=== PATIENT | male | born 1985 | race Caucasian/White ===

== ENCOUNTER → 2020-07-06 16:14 | Outpatient (CLI) | payer OTHER, SELFPAY ==
[2020-07-06 17:42] LABS: COVID19 -Nasal RAPID Negative (Negative)
== END ==
PROVIDERS: PCP Registered Nurse Diabetes Educator; Visit Provider Specialist
DX: Z20.822 Contact with and (suspected) exposure to COVID-19 (principal)
CPT/HCPCS: 87635; C9803

== ENCOUNTER 2020-07-08 06:34 | Day surgery (SDC) | payer OTHER, SELFPAY ==
[2020-07-08] VITALS (8 sets, daily range): BP systolic 94–118; BP diastolic 54–69; PULSE 56–99; RESP 12–18; TEMP 36.5–37; O2SAT 98–99; BMI 23.0
[2020-07-08] MEDS: LACTATED RINGERS 1,000 ML 42 ML IV (07:14)
--- NOTE | 2020-07-08 07:32 | PM.PREOP ---
Pre-operative Note Interval Note History & Physical reviewed/Exam performed by Physician: Yes Changes to H&P: No H&P completed within 30 days and has changed as indicated here:: Heber is a 34-year-old white male presenting today for right inguinal hernia repair by Dr. Ortega, who also desires sterility. He is reviewed and considered available long-term methods of contraception in family planning and has chosen vasectomy is his preferred method. The common side effects, possible complications, perioperative limitations/restrictions, and reasonable expectations of outcomes and recovery following vasectomy were explained at length and in detail today. He had no specific further clarifying questions and indicates a desire to proceed.
--- NOTE | 2020-07-08 07:33 | PM.PREOP ---
Pre-operative Note COVID-19 COVID-19 status: Negative Result date/Date tested (Pos, Neg/Pending): 07/07/20 Interval Note History & Physical reviewed/Exam performed by Physician: Yes Changes to H&P: No H&P completed within 30 days and has changed as indicated here:: Spoke with patient about the permanence of the vasectomy, and the fact it may not be able to be reversed.
[2020-07-08] MEDS: CEFAZOLIN 2 GM/100 ML FROZ.PIGGY IV (07:45)
--- NOTE | 2020-07-08 08:09 | SUR.OPER ---
Supine on padded OR bed, head on pillow, arms secured on padded arm boards at <90 degrees abduction, legs uncrossed, safety belt at thigh, tape over blanket over lower legs.
[2020-07-08] MEDS: BUPIVACAINE 0.5% (PF) VIAL 30 ML INJ (08:20)
--- NOTE | 2020-07-08 08:25 | PM.OP.1 ---
Operative Date/Time/Diagnoses Date of procedure: 07/08/20 Time of procedure: 08:25 Pre-op diagnosis: Desires sterility Post-op diagnosis: same Procedure & Clinicians Procedure: 1. Bilateral mastectomy Same procedure as scheduled: Yes Indications: 1. Desires sterility Surgeon: Pasha Wade Click Yes if Unassisted: Yes Anesthesia Type: General and Local (0.5% plain Marcaine) Operative Notes Findings: Normal vas structure and tissue planes. Closure Type: primary Specimen(s): none sent Estimated Blood Loss (mL): 0 Blood products transfused: none Tourniquet time (min): 0 Procedure in detail: The patient was positioned supine administered general anesthesia. The lower abdomen, groin and genitalia were prepped and draped in sterile fashion. Dr. Ortega created a right inguinal incision and exposure of the cord in usual fashion. Local anesthetic was used to infiltrate the midline scrotal raphae and subcutaneous tissue. The ringed vas clamp was then utilized to identify and isolate the left vas. A 2nd ring clamp was then applied as well. The overlying vast sheath was then divided using cautery and blunt technique. The isolated vas loop was then brought up through the incision. Medium hemoclips were then applied in opposing directions on the distal side and single on the proximal side. Intervening segment of approximately 1 cm was then excised with the cautery pen. The testicle was then repositioned left hemiscrotum. Skin and subcutaneous tissues then reapproximated with interrupted 4-0 chromic. A segment of the vas was isolated via the right inguinal canal incision. Again, the vas was isolated with the ringed vas clamps. The vas sheath was divided in the same manner and a loop of isolated as was then exposed. Again, medium clips were applied an opposing direction x2 on the distal side and a single clip on the proximal side. An intervening segment of approximately 1 centimetre was excised with the cautery pen and discarded. Dr. Ortega then completed his planned operative procedure of the day, the details of which can be found in his operative report. Complications: none Post-operative Condition: stable Disposition: PACU Plan for aftercare: 1. Discharge home. 2. Submit post vasectomy semen analysis in approximately 12 weeks per routine.
--- NOTE | 2020-07-08 09:30 | PM.OP.1 ---
Operative Date/Time/Diagnoses Date of procedure: 07/08/20 Time of procedure: 09:30 Pre-op diagnosis: Right inguinal hernia reducible Post-op diagnosis: same Procedure & Clinicians Procedure: Right inguinal hernia repair with plug and patch technique. Separate vasectomy done by Dr. Wade which will be dictated separately Same procedure as scheduled: Yes Indications: Symptomatic right inguinal hernia Surgeon: Rosales Ortega Click Yes if Unassisted: Yes Anesthesia Type: General Operative Notes Findings: Large indirect sac with a markedly weakened floor Closure Type: primary Specimen(s): none sent (For the hernia repair.) Prosthetic devices, grafts, tissues, transplants, or devices: Small plug and patch Estimated Blood Loss (mL): 10 Blood products transfused: none Procedure in detail: The patient was placed supine on the operating room table and underwent general LMA anesthesia. He was prepped and draped in the usual fashion. A transverse incision was made overlying the right internal ring and carried down to the level of the external oblique. The external oblique was opened parallel with its fibers through the external ring. The cord structures were elevated. The cremaster was opened proximally and search made for an indirect sac. One was found. Was from surrounding structures. There was a piece of omentum adherent to the distal and causing a lot of scarring between the sac and the cord. I ultimately this out dissected the sac proximally level deep epigastric vessels. The omentum was reduced and a pursestring of 2-0 silk was placed followed by tie. Local anesthetic was infiltrated beneath the tie and distal portion was removed and the stump allowed to retract. A small plug was placed in the defect created and tacked into place with interrupted Ethibond. Cremaster was closed over it with interrupted 3-0 Vicryl.. The floor was examined and was found to be weakened.. A patch was placed across the floor and tacked at the pubic tubercle, the posterior lamella of the anterior rectus sheath, the ilioinguinal ligament, and superior lateral to the cord. The opening was modified as necessary to prevent tight constriction of the cord. Sutures of 0 Ethibond were used to secure the mesh. The external oblique was closed with a running 3 0 Vicryl. The subcu was closed with interrupted 3 0 Vicryl. The skin was closed with a running 4 0 Vicryl subcuticular stitch and Steri-Strips. Dressing was applied, the patient was awakened, and the patient was taken to the recovery area in good condition. Complications: none Post-operative Condition: stable Disposition: PACU
[2020-07-08] MEDS: MEPERIDINE 50 MG/ML INJ 12.5 MG IV (09:40)
[2020-07-08] MEDS: OXYCODONE/ACETAMINOPHEN 5/325 TABLET 1 TAB PO (10:02)
--- NOTE | 2020-07-08 11:02 | SUR.PHASEII ---
1022- Pt up and ambulating gait steady to br voiding without problems and getting dressed now, iv dcd site clear, all dc instructions given and pt verbalizes understanding, father at curbside and pt ready to go soon. Taking po fluids without problems and will go pickle solution maker rx at pharmacy
== END 2020-07-08 10:35 | disposition home or self-care (01) ==
PROVIDERS: PCP Registered Nurse Diabetes Educator; Referring Provider Specialist; Visit Provider Specialist
PROC: (CPT 55250; principal; 2020-07-08 07:45)
PROC: (CPT 49505; 2020-07-08 07:45)
DX: K40.90 Unilateral inguinal hernia, without obstruction or gangrene, not specified as recurrent (principal); Z30.2 Encounter for sterilization; F17.210 Nicotine dependence, cigarettes, uncomplicated
CPT/HCPCS: 49505; 55250; C1781; J0690; J1100; J1885; J2175; J2250; J2405; J2704; J3010

== ENCOUNTER → 2020-10-07 13:13 | Outpatient (CLI) | payer OTHER, SELFPAY ==
[2020-10-07 14:57] LABS: COVID19 -Nasal RAPID POSITIVE (Negative)
== END ==
PROVIDERS: PCP Registered Nurse Diabetes Educator; Referring Provider Student in an Organized Health Care Education/Training Program; Visit Provider Student in an Organized Health Care Education/Training Program
DX: U07.1 COVID-19 (principal)
CPT/HCPCS: 87635

== ENCOUNTER 2022-11-07 10:34 | Emergency (ER) | payer OTHER, SELFPAY ==
[2022-11-07 10:46] VITALS: BP 123/58; PULSE 66; RESP 18; TEMP 36.7; O2SAT 99; BMI 23.4
--- NOTE | 2022-11-07 13:12 | DI.CT.S_ITS ---
PROCEDURE: CT ABDOMEN PELVIS W CON INDICATIONS: Incision keeps opening up 3 yearsb after surgery TECHNIQUE: After the administration of intravenous contrast, axial sections acquired from the lung bases to the pubic symphysis. Coronal and sagittal reformats were performed. For radiation dose reduction, the following was used: automated exposure control, adjustment of mA and/or kV according to patient size. COMPARISON: None. FINDINGS: Image quality: Excellent. Lung bases: Unremarkable. Heart: No significant findings. ABDOMEN: Liver: There is a 15 mm low-density focus within the right hepatic lobe inferiorly which demonstrates peripheral nodular enhancement, consistent with a hemangioma. There is an avidly enhancing 13 mm focus within the lateral segment left hepatic lobe inferiorly which demonstrates peripheral nodular enhancement, consistent with hemangioma. Gallbladder: Unremarkable. Biliary ducts: Unremarkable. Pancreas: Unremarkable. Spleen: Unremarkable. Adrenal Glands: Unremarkable. Kidneys and Ureters: Unremarkable. Stomach and Bowel: Stomach, small bowel loops, and colon are unremarkable. Normal appendix. Peritoneum: No abnormal intraperitoneal fluid. No free air. Ventral Wall: No hernias. Abdominal Nodes: No retroperitoneal or mesenteric adenopathy by size criteria. Vessels: Aorta and inferior vena cava are normal in size. PELVIS: Pelvic Organs: Unremarkable. Bladder: Unremarkable. Pelvic Nodes: No enlarged lymph nodes. Miscellaneous: No hernias are seen. Right inguinal surgical clips are present. Induration of the overlying skin is present. Bones: Unremarkable. IMPRESSION: 1. Postsurgical sequelae within the right inguinal region with overlying skin induration, possibly indicating infection or scarring. No focal fluid collection to indicate abscess. 2. Normal appendix. 3. Hepatic hemangiomata. Dictated by: Virgil Lainez M.D. on 11/07/2022 at 13:48 Approved by: Virgil Lainez M.D. on 11/07/2022 at 13:53
--- NOTE | 2022-11-07 13:27 | ED.SKABFB ---
HPI - Skin/Abscess/Foreign Bdy <Harmony Echevarria PA-C - Last Filed: 11/07/22 15:52> General Chief complaint: Skin/Abscess/Foreign Body Stated complaint: inscion is opening up Time Seen by Provider: 11/07/22 12:33 Source: patient Mode of arrival: Ambulatory Limitations: no limitations History of Present Illness HPI narrative: 36-year-old male with no reported past medical history presents to the ED for wound dehiscence from a prior inguinal hernia surgery. Patient states that the surgery was 3 years ago, that the incision has been flaring up on an on, sometimes oozes a pus-like substance. Patient states that the wound seems to get aggravated by his pants rubbing against the skin. Patient states that a week ago, he saw the incision actually open up and he saw something mackenzie to internal organs. Patient denies fever, chills, nausea, vomiting, abdominal pain, pain at the site of the incision. Patient states that his surgeon has since retired and he has not sought any medical care for this issue over the last 3 years. Related Data Previous Rx's Medication Instructions Recorded sulfamethoxazole 800 1 tab PO BID 7 days #14 tabs 11/07/22 mg-trimethoprim 160 mg tablet (Bactrim DS) Allergies Allergy/AdvReac Type Severity Reaction Status Date / Time No Known Drug Allergies Allergy Verified 11/07/22 10:48 Review of Systems <Harmony Echevarria PA-C - Last Filed: 11/07/22 15:52> Review of Systems ROS Unobtainable: All systems reviewed & are unremarkable except as noted in HPI and below Constitutional Constitutional: Denies chills, Denies fatigue, Denies fever(s), Denies frequent falls, Denies lethargy and Denies weakness Eyes Eyes: Denies change in vision, Denies eye discharge, Denies irritation and Denies loss of vision ENT Ears, Nose, Mouth, and Throat: Denies change in voice, Denies dizziness, Denies neck pain, Denies sore throat and Denies throat swelling Cardiovascular Cardiovascular: Denies chest pain, Denies irregular heart rhythm, Denies lightheadedness, Denies palpitations, Denies dyspnea, Denies dyspnea on exertion and Denies orthopnea Respiratory Respiratory: Denies cough, Denies dyspnea, Denies dyspnea on exertion and Denies wheezing Gastrointestinal Gastrointestinal: Denies abdominal pain, Denies change in bowel habits, Denies diarrhea, Denies nausea and Denies vomiting Genitourinary Genitourinary: Denies hematuria, Denies flank pain, Denies urinary incontinence and Denies urinary urgency Musculoskeletal Musculoskeletal: Denies back pain, Denies muscle weakness, Denies neck pain, Denies numbness and Denies tingling Integumentary/Breasts Skin/Breast: Denies pruritus, Denies erythema, Denies rash and Reports wounds Neurologic Neurologic: Denies behavioral changes, Denies confusion, Denies dizziness, Denies frequent falls, Denies loss of vision, Denies numbness, Denies tingling and Denies weakness Psychiatric Psychiatric: Denies anxiety, Denies behavioral changes, Denies confusion, Denies depression, Denies homicidal ideation and Denies suicidal ideation Endocrine Endocrine: Denies fatigue, Denies flushing and Denies palpitations Hematologic/Lymphatic Hematologic/Lymphatic: Denies easy bruising Allergic/Immunologic Allergic/Immunologic: Denies urticaria, Denies throat swelling and Denies wheezing Patient History <Harmony Echevarria PA-C - Last Filed: 11/07/22 15:52> Medical History (Updated 11/07/22 @ 15:03 by Harmony Echevarria PA-C) Right inguinal hernia Family History Grandmother Diabetes mellitus Cancer Hypertension Social History marital status: unknown household members: none occupational status: employed Smoking Status: Current every day smoker quit status: not considering quitting second hand exposure: Yes alcohol intake: current substance use type: marijuana Smoking Status: Current every day smoker tobacco type: vaping alcohol intake frequency: a few times a week Substance Use Type: marijuana Exam <Harmony Echevarria PA-C - Last Filed: 11/07/22 15:52> Narrative Exam Narrative: Const General:?cooperative, healthy appearing and comfortable [facility] Head:?normal to inspection Ears:?hearing grossly normal bilaterally Nose:?external nose normal Face and sinus:?normal facial exam and sinuses nontender Mouth:?oral mucosae normal Throat:?posterior oropharynx normal Eyes General:?appearance normal, both eyes and all related structures Neck Neck:?normal visual inspection and no lymphadenopathy noted Resp Effort & Inspection:?normal respiratory effort Auscultation:?clear to auscultation bilaterally Cardio Rate:?regular rate Rhythm:?regular rhythm Integumentary Linear surgical incision is visualized in the right inguinal area. It appears closed with some crusted blood around the incision. No purulence or other discharge noted on exam. There is no erythema. It is not tender to palpation. Neuro General:?patient alert, patient awake and patient oriented x3 Initial Vital Signs Initial Vital Signs: Vital Signs Temperature 98.0 F 11/07/22 10:46 Pulse Rate 66 11/07/22 10:46 Respiratory Rate 18 11/07/22 10:46 Blood Pressure 123/58 L 11/07/22 10:46 Pulse Oximetry 99 11/07/22 10:46 Oxygen Delivery Method Room Air 11/07/22 10:46 <Hanna Roberts DO - Last Filed: 11/08/22 07:43> Initial Vital Signs Initial Vital Signs: Vital Signs Temperature 98.0 F 11/07/22 10:46 Pulse Rate 66 11/07/22 10:46 Respiratory Rate 18 11/07/22 10:46 Blood Pressure 123/58 L 11/07/22 10:46 Pulse Oximetry 99 11/07/22 10:46 Oxygen Delivery Method Room Air 11/07/22 10:46 Course <Harmony Echevarria PA-C - Last Filed: 11/07/22 15:52> Orders Ordered: ED Orders 11/07/22 13:12 CT abdomen pelvis w con Stat 11/07/22 13:25 CBC Auto Diff [Complete Blood Count AUTO DIFF] Stat CMP [Comprehensive Metabolic Panel] Stat Vital Signs Vital signs: Vital Signs - 8 hr 11/07/22 10:46 11/07/22 13:52 11/07/22 15:09 Temperature 98.0 F 98.4 F Pulse Rate 66 59 L 64 Respiratory Rate 18 14 18 Blood Pressure 123/58 L 107/60 128/78 Pulse Oximetry 99 100 99 Oxygen Delivery Method Room Air Room Air Room Air <Hanna Roberts DO - Last Filed: 11/08/22 07:43> Orders Ordered: ED Orders 11/07/22 13:12 CT abdomen pelvis w con Stat 11/07/22 13:25 CBC Auto Diff [Complete Blood Count AUTO DIFF] Stat CMP [Comprehensive Metabolic Panel] Stat Vital Signs Vital signs: Vital Signs - 8 hr 11/07/22 10:46 11/07/22 13:52 11/07/22 15:09 Temperature 98.0 F 98.4 F Pulse Rate 66 59 L 64 Respiratory Rate 18 14 18 Blood Pressure 123/58 L 107/60 128/78 Pulse Oximetry 99 100 99 Oxygen Delivery Method Room Air Room Air Room Air MDM - Skin/Abscess/Foreign Bdy <Harmony Echevarria PA-C - Last Filed: 11/07/22 15:52> Lab Data 11/07/22 13:25 11/07/22 13:25 Labs: Lab Results 11/07/22 11/07/22 Range/Units 13:25 13:25 WBC 8.8 (4.5-11.0) X10^3/uL RBC 5.28 (4.5-5.9) X10^6/uL Hgb 15.5 (13.5-17.5) g/dL Hct 45.1 (41-53) % MCV 85.4 (80-100) fL MCH 29.4 (26-34) PG MCHC 34.5 (30-36) % RDW 13.1 (11.6-14.8) % Plt Count 197 (150-400) X10^3/uL Neut % (Auto) 70.3 (50-75) % Lymph % (Auto) 23.2 L (25-40) % [place] % (Auto) 5.4 (3-14) % Eos % (Auto) 0.6 L (2-4) % Baso % (Auto) 0.5 (0-2) % Neut # (Auto) 6200 (5426-0755) /uL Lymph # (Auto) 2000 (8729-5617) /uL [place] # (Auto) 500 (0-900) /uL Eos # (Auto) 100 (0-450) /uL Baso # (Auto) 0 (0-100) /uL Sodium 137 (137-145) mmol/L Potassium 4.2 (3.4-5.1) mmol/L Chloride 105 (98-107) mmol/L Carbon Dioxide 24 (22-32) mmol/L BUN 11 (9-20) mg/dL Creatinine 0.73 (0.66-1.25) mg/dL Estimated GFR > 60 (>60) mL/min BUN/Creatinine Ratio 15.1 (6-22) Glucose 84 (70-100) mg/dL Calcium 8.9 (8.4-10.2) mg/dL Total Bilirubin 0.7 (0.2-1.3) mg/dL AST 29 (17-59) IU/L ALT 24 (<50) IU/L Alkaline Phosphatase 53 (38-126) U/L Total Protein 7.4 (6.3-8.2) g/dL Albumin 4.2 (3.5-5.0) g/dL Globulin 3.2 (1.7-4.1) g/dL Albumin/Globulin Ratio 1.3 (1.0-2.8) MDM Narrative Medical decision making narrative: 36-year-old male with no reported past medical history presents to the ED for wound dehiscence from a prior inguinal hernia surgery. Concern for abscess versus wound dehiscence versus seroma versus other intra-abdominal pathology versus other. Will obtain labs, CT abdomen pelvis. Will reassess. CT abdomen pelvis shows postsurgical sequelae within the right inguinal region with overlying skin induration, possibly indicating infection or scarring. No focal fluid collection to indicate abscess. No other abnormal findings on CT. Will prescribe antibiotics for possible infection. Recommend follow-up with General surgery for further evaluation of the wound. ED return precautions discussed with patient. Patient verbalized understanding. Medical records reviewed: Yes <Hanna Roberts DO - Last Filed: 11/08/22 07:43> Lab Data Labs: Lab Results 11/07/22 11/07/22 Range/Units 13:25 13:25 WBC 8.8 (4.5-11.0) X10^3/uL RBC 5.28 (4.5-5.9) X10^6/uL Hgb 15.5 (13.5-17.5) g/dL Hct 45.1 (41-53) % MCV 85.4 (80-100) fL MCH 29.4 (26-34) PG MCHC 34.5 (30-36) % RDW 13.1 (11.6-14.8) % Plt Count 197 (150-400) X10^3/uL Neut % (Auto) 70.3 (50-75) % Lymph % (Auto) 23.2 L (25-40) % [place] % (Auto) 5.4 (3-14) % Eos % (Auto) 0.6 L (2-4) % Baso % (Auto) 0.5 (0-2) % Neut # (Auto) 6200 (0733-6625) /uL Lymph # (Auto) 2000 (7732-1010) /uL [place] # (Auto) 500 (0-900) /uL Eos # (Auto) 100 (0-450) /uL Baso # (Auto) 0 (0-100) /uL Sodium 137 (137-145) mmol/L Potassium 4.2 (3.4-5.1) mmol/L Chloride 105 (98-107) mmol/L Carbon Dioxide 24 (22-32) mmol/L BUN 11 (9-20) mg/dL Creatinine 0.73 (0.66-1.25) mg/dL Estimated GFR > 60 (>60) mL/min BUN/Creatinine Ratio 15.1 (6-22) Glucose 84 (70-100) mg/dL Calcium 8.9 (8.4-10.2) mg/dL Total Bilirubin 0.7 (0.2-1.3) mg/dL AST 29 (17-59) IU/L ALT 24 (<50) IU/L Alkaline Phosphatase 53 (38-126) U/L Total Protein 7.4 (6.3-8.2) g/dL Albumin 4.2 (3.5-5.0) g/dL Globulin 3.2 (1.7-4.1) g/dL Albumin/Globulin Ratio 1.3 (1.0-2.8) Discharge Plan Departure Patient Disposition: Home Clinical Impression: Surgical wound, non healing Instructions: Wound Dehiscence Activity Restrictions/Additional Instructions: You were evaluated in the ED today for a nonhealing surgical wound. Your CT shows some induration around the incision, which could likely be due to an infection. You are being treated with antibiotics for this. Please also follow-up with [facility] by calling [phone] for further evaluation of the wound. Please return to the ED if you have worsening symptoms, fever, chills, nausea, vomiting. Prescriptions: New sulfamethoxazole-trimethoprim [Bactrim DS] 800-160 mg tablet 1 tab PO BID 7 Days Qty: 14 0RF Referrals: Asa Lopez ARNP [Primary Care Provider] - Stand Alone Forms: Patient Portal/API <Hanna Roberts DO - Last Filed: 11/08/22 07:43> Cosign ED Attending Cosdeonature Attestation: I was immediately available in the department for consultation. Documentation has been reviewed.
[2022-11-07 13:32] LABS: Add Manual Diff / Slide Review NO; Basophils Absolute Auto 0 /uL (0-100); Basophils Percent Auto 0.5 % (0-2); Eosinophils Absolute Auto 100 /uL (0-450); Eosinophils Percent Auto 0.6 % (2-4); Hematocrit 45.1 % (41-53); Hemoglobin 15.5 g/dL (13.5-17.5); Lymphocytes Absolute Auto 2000 /uL (1100-4500); Lymphocytes Percent Auto 23.2 % (25-40); Mean Corpuscular HGB Conc 34.5 % (30-36); Mean Corpuscular Hemoglobin 29.4 PG (26-34); Mean Corpuscular Volume 85.4 fL (80-100); Monocytes Absolute Auto 500 /uL (0-900); Monocytes Percent Auto 5.4 % (3-14); Neutrophils Absolute Auto 6200 /uL (1500-7000); Neutrophils Percent Auto 70.3 % (50-75); Platelet Count 197 X10^3/uL (150-400); Red Blood Cell Count 5.28 X10^6/uL (4.5-5.9); Red Cell Distribution Width 13.1 % (11.6-14.8); White Blood Cell Count 8.8 X10^3/uL (4.5-11.0)
[2022-11-07 13:46] LABS: Alanine Aminotransferase 24 IU/L (<50); Albumin 4.2 g/dL (3.5-5.0); Albumin Globulin Ratio 1.3 (1.0-2.8); Alkaline Phosphatase 53 U/L (38-126); Aspartate Aminotransferase 29 IU/L (17-59); BUN Creatinine Ratio 15.1 (6-22); Bilirubin Total 0.7 mg/dL (0.2-1.3); Blood Urea Nitrogen 11 mg/dL (9-20); Calcium 8.9 mg/dL (8.4-10.2); Carbon Dioxide 24 mmol/L (22-32); Chloride 105 mmol/L (98-107); Estimated Glomerular Filt Rate > 60 mL/min (>60); Globulin 3.2 g/dL (1.7-4.1); Glucose 84 mg/dL (70-100); HEMOLYSIS 36 (0-50); Potassium 4.2 mmol/L (3.4-5.1); Sodium 137 mmol/L (137-145); Total Protein 7.4 g/dL (6.3-8.2)
[2022-11-07 13:52] VITALS: BP 107/60; PULSE 59; RESP 14; O2SAT 100
[2022-11-07 15:09] VITALS: BP 128/78; PULSE 64; RESP 18; TEMP 36.9; O2SAT 99
== END 2022-11-07 15:11 | disposition home or self-care (01) ==
PROVIDERS: Emergency Provider Student in an Organized Health Care Education/Training Program; PCP Registered Nurse Diabetes Educator
DX: T81.89XA Other complications of procedures, not elsewhere classified, initial encounter (principal)
CPT/HCPCS: 36415; 74177; 80053; 85025; 99284